=== PATIENT | male | born 1950 | race Caucasian/White ===

== ENCOUNTER 2025-04-03 13:43 | Inpatient (IN) | payer MEDICARE ==
[~2025-04-03] VITALS: Ht 195.6 cm; Wt 120.2 kg
[2025-04-03] MEDS: ONDANSETRON HCL INJ 2MG/ML 2ML 2 MG/ML VIAL IV STA (14:19)
[2025-04-03] MEDS: SODIUM CHLORIDE 0.9% 1000ML 1,000 ML IV STA (14:19)
[2025-04-03 14:23] LABS: BASOPHILS # (AUTO) 0.1 (0.0-0.1); EOSINOPHILS # (AUTO) 0.8 (0.0-0.4); EOSINOPHILS % 12.8 % (0.0-6.0); HEMATOCRIT 33.9 % (38.2-49.6); HEMOGLOBIN 11.6 g/dL (14.0-18.0); LYMPHOCYTES # (AUTO) 1.6 (1.0-3.2); LYMPHOCYTES % 27.4 % (18.0-39.1); MEAN CORPUSCULAR HEMOGLOBIN 29.7 pg (28-32); MEAN CORPUSCULAR HGB CONC 34.2 g/dL (31-35); MEAN CORPUSCULAR VOLUME 86.9 fL (81-99); MONOCYTES # (AUTO) 0.6 (0.2-0.8); MONOCYTES % 10.6 % (4.4-11.3); NEUTROPHILS # (AUTO) 2.8 (2.1-6.9); PLATELET COUNT 225 x10e3/uL (140-360); RED CELL DISTRIBUTION WIDTH 12.3 % (11.7-14.4); WHITE BLOOD COUNT 5.87 x10e3/uL (4.8-10.8)
[2025-04-03 14:29] LABS: INR 0.9
[2025-04-03 14:30] LABS: PARTIAL THROMBOPLASTIN TIME 32.6 seconds (23.8-35.5)
[2025-04-03 14:38] LABS: ALBUMIN 3.6 g/dL (3.5-5.0); ALBUMIN/GLOBULIN RATIO 1.3 (0.8-2.0); BILIRUBIN,TOTAL 0.9 mg/dL (0.2-1.2); CALCIUM 8.8 mg/dL (8.4-10.2); CREATININE, SERUM 0.64 mg/dL (0.72-1.25); MAGNESIUM 1.7 MG/DL (1.3-2.1); TOTAL PROTEIN 6.3 g/dL (6.5-8.1)
[2025-04-03 14:40] LABS: CORONAVIRUS COVID-19 AG NEGATIVE (NEGATIVE); INFLUENZA A AG NEGATIVE (NEGATIVE); INFLUENZA B AG NEGATIVE (NEGATIVE)
[2025-04-03 14:45] LABS: TROPONIN I 0.02 ng/mL (0-0.300)
[2025-04-03] MEDS ORDERED: ACETAMINOPHEN 325 MG TAB PO PRN (15:15)
[2025-04-03] MEDS ORDERED: ONDANSETRON HCL INJ 2MG/ML 2ML 2 MG/ML VIAL IV PRN (15:15)
[2025-04-03 15:27] LABS: BILIRUBIN,URINE NEGATIVE (NEGATIVE); CLARITY,URINE CLEAR (CLEAR); COLOR,URINE YELLOW (YELLOW); GLUCOSE, URINE NEGATIVE (NEGATIVE); KETONES,URINE NEGATIVE (NEGATIVE); LEUKOCYTE ESTERASE ,URINE NEGATIVE (NEGATIVE); NITRITE,URINE NEGATIVE (NEGATIVE); PH,URINE 6 (5 - 7); PROTEIN,URINE DIPSTICK NEGATIVE (NEGATIVE); URINE UROBILINOGEN 1 mg/dL (0.2 - 1)
[2025-04-03 15:43] LABS: AMORPHOUS SEDIMENT,URINE FEW; BACTERIA,URINE RARE /HPF; EPITHELIAL CELLS,URINE MODERATE /LPF; MUCUS,URINE MODERATE; RBC,URINE 0-5 /HPF (0-5)
[2025-04-03] MEDS ORDERED: BENZONATATE 100 MG CAP PO PRN (16:00)
[2025-04-03] MEDS ORDERED: ALBUTEROL/IPRATROPIUM 3 ML NEB NEB PRN (16:00)
[2025-04-03] MEDS ORDERED: DIPHENHYDRAMINE HCL 25 MG CAP PO PRN (16:00)
[2025-04-03] MEDS ORDERED: HYDRALAZINE HCL 20 MG/ML VIAL IV PRN (16:00)
[2025-04-03] MEDS ORDERED: SIMETHICONE 80 MG CHEW PO PRN (16:00)
[2025-04-03] MEDS ORDERED: POTASSIUM CHLORIDE 20 MEQ TAB CR PO PRN (16:00)
[2025-04-03] MEDS ORDERED: DEXTROSE 50% SYRINGE 50 ML IV PRN (16:00)
[2025-04-03] MEDS ORDERED: DOCUSATE SODIUM 100 MG CAP PO PRN (16:00)
[2025-04-03] MEDS ORDERED: LIDOCAINE 4% PATCH TP PRN (16:00)
[2025-04-03 16:29] VITALS: PULSE 56; RESP 21; TEMP 97.4
[2025-04-03 17:21] VITALS: BP 157/61; PULSE 53; RESP 20; TEMP 98.5; O2SAT 95
[2025-04-03] MEDS: ENOXAPARIN SOD INJ 40 MG/0.4 ML SYR SC SCH (17:22)
[2025-04-03] MEDS: AZITHROMYCIN 250 MG TAB PO SCH (17:22)
[2025-04-03] MEDS ORDERED: CLOBETASOL PROP15 GM (17:46)
[2025-04-03] MEDS ORDERED: EZETIMIBE10 MG PO (17:46)
[2025-04-03] MEDS ORDERED: ATORVASTATIN CA40 MG PO (17:46)
[2025-04-03] MEDS ORDERED: NIFEDIPINE ER30 M1 PO (17:46)
[2025-04-03] MEDS ORDERED: LIBTAYO350 MG/7 M (17:46)
[2025-04-03] MEDS ORDERED: [UNRECOGNIZED DRUG - OTHER] PO (17:46)
[2025-04-03] MEDS ORDERED: FLUTICASONE PRO16 GM (17:46)
[2025-04-03] MEDS ORDERED: TELMISARTAN80 MG PO (17:46)
[2025-04-03] MEDS ORDERED: BENZONATATE100 MG PO (17:46)
[2025-04-03 18:18] VITALS: BP 157/61; PULSE 53; RESP 18; TEMP 98.5; O2SAT 95
[2025-04-03 18:58] LABS: TROPONIN I 0.017 ng/mL (0-0.300)
[2025-04-03] MEDS: SODIUM CHLORIDE 0.9% 250ML 250 ML ONE (19:03)
[2025-04-03 19:35] VITALS: PULSE 58; RESP 16; O2SAT 94
[2025-04-03 20:00] VITALS: BP 139/54; PULSE 54; RESP 20; TEMP 97.3; O2SAT 94
[2025-04-03] MEDS: GUAIFENESIN/CODEINE 5 ML LIQD PO PRN (20:23)
[2025-04-03] MEDS: MELATONIN 5 MG TABLET PO PRN (20:23)
[2025-04-03] MEDS: SODIUM CHLORIDE 0.9% 1000ML 1,000 ML IV SCH (20:23)
[2025-04-04] VITALS (9 sets, daily range): BP systolic 139–184; BP diastolic 54–78; PULSE 53–81; RESP 16–21; TEMP 97.3–98.4; O2SAT 90–97
[2025-04-04 02:16] LABS: TROPONIN I 0.021 ng/mL (0-0.300)
[2025-04-04] MEDS: ACETAMINOPHEN 325 MG TAB PO PRN (05:17)
[2025-04-04 06:08] LABS: BASOPHILS # (AUTO) 0.1 (0.0-0.1); BASOPHILS % 0.8 % (0.0-1.0); EOSINOPHILS # (AUTO) 0.7 (0.0-0.4); EOSINOPHILS % 11.5 % (0.0-6.0); HEMATOCRIT 32.5 % (38.2-49.6); HEMOGLOBIN 11.1 g/dL (14.0-18.0); LYMPHOCYTES # (AUTO) 1.4 (1.0-3.2); LYMPHOCYTES % 22.4 % (18.0-39.1); MEAN CORPUSCULAR HGB CONC 34.2 g/dL (31-35); MEAN CORPUSCULAR VOLUME 87.8 fL (81-99); MONOCYTES # (AUTO) 0.7 (0.2-0.8); MONOCYTES % 11.2 % (4.4-11.3); NEUTROPHILS # (AUTO) 3.4 (2.1-6.9); NEUTROPHILS % 53.9 % (38.7-80.0); PLATELET COUNT 224 x10e3/uL (140-360); RED CELL DISTRIBUTION WIDTH 12.2 % (11.7-14.4); WHITE BLOOD COUNT 6.33 x10e3/uL (4.8-10.8)
[2025-04-04 06:28] LABS: ALBUMIN 3.3 g/dL (3.5-5.0); ALBUMIN/GLOBULIN RATIO 1.3 (0.8-2.0); ANION GAP 10.5 mmol/L (8-16); BILIRUBIN,TOTAL 0.7 mg/dL (0.2-1.2); CALCIUM 8.6 mg/dL (8.4-10.2); CREATININE, SERUM 0.68 mg/dL (0.72-1.25); POTASSIUM 4.5 mmol/L (3.5-5.1); TOTAL PROTEIN 5.9 g/dL (6.5-8.1)
[2025-04-04] MEDS: PANTOPRAZOLE SOD 40 MG TABEC PO SCH (08:24)
[2025-04-04] MEDS: NIFEDIPINE CR 30 MG TAB PO SCH (14:43)
[2025-04-04] MEDS: SODIUM CHLORIDE 0.9% 1000ML 1,000 ML IV SCH (14:43)
[2025-04-04] MEDS: LORATADINE 10 MG TAB PO SCH (14:53)
[2025-04-04] MEDS: PREDNISONE 20 MG TAB PO SCH (14:53)
[2025-04-04] MEDS: ALBUTEROL/IPRATROPIUM 3 ML NEB NEB SCH (16:54)
[2025-04-04] MEDS: FLUTICASONE PROPIONATE NASAL SPRAY NS SCH (17:31)
[2025-04-05] VITALS (10 sets, daily range): BP systolic 138–156; BP diastolic 51–67; PULSE 60–83; RESP 16–22; TEMP 97.5–98.5; O2SAT 92–98
[2025-04-05 05:54] LABS: BASOPHILS % 0.2 % (0.0-1.0); EOSINOPHILS % 0.2 % (0.0-6.0); HEMATOCRIT 32.7 % (38.2-49.6); HEMOGLOBIN 11.3 g/dL (14.0-18.0); LYMPHOCYTES % 23.5 % (18.0-39.1); MEAN CORPUSCULAR HEMOGLOBIN 30.1 pg (28-32); MEAN CORPUSCULAR HGB CONC 34.6 g/dL (31-35); MEAN CORPUSCULAR VOLUME 87.2 fL (81-99); MONOCYTES # (AUTO) 0.5 (0.2-0.8); MONOCYTES % 10.4 % (4.4-11.3); NEUTROPHILS # (AUTO) 2.9 (2.1-6.9); NEUTROPHILS % 65.5 % (38.7-80.0); PLATELET COUNT 245 x10e3/uL (140-360); RED BLOOD COUNT 3.75 x10e6/uL (4.3-5.7); WHITE BLOOD COUNT 4.42 x10e3/uL (4.8-10.8)
[2025-04-05 06:42] LABS: ANION GAP 13.1 mmol/L (8-16); CALCIUM 8.6 mg/dL (8.4-10.2); CREATININE, SERUM 0.63 mg/dL (0.72-1.25); POTASSIUM 4.1 mmol/L (3.5-5.1)
[2025-04-05] MEDS: EZETIMIBE 10 MG TAB PO SCH (09:06)
[2025-04-05] MEDS: ATORVASTATIN 40 MG TAB PO SCH (09:07)
[2025-04-05] MEDS: SODIUM CHLORIDE 1 GM TAB PO SCH (15:36)
[2025-04-06] VITALS (9 sets, daily range): BP systolic 145–177; BP diastolic 60–72; PULSE 50–71; RESP 18–19; TEMP 98.1–98.8; O2SAT 94–100
[2025-04-06 05:27] LABS: HEMATOCRIT 31.2 % (38.2-49.6); HEMOGLOBIN 10.4 g/dL (14.0-18.0)
[2025-04-06 05:59] LABS: ANION GAP 15.9 mmol/L (8-16); CREATININE, SERUM 0.69 mg/dL (0.72-1.25); POTASSIUM 3.9 mmol/L (3.5-5.1)
[2025-04-06 13:43] LABS: OSMOLALITY,SERUM OSMOMETER 255 mOsmol/kg (280-301)
[2025-04-06 15:46] LABS: OSMOLALITY,URINE 556 mOsmol/kg (.)
== END 2025-04-06 15:30 | disposition home or self-care (01) | DRG 644 ==
LOC: ER 13:49 → ERHOLD 15:11 → MED/SURG 16:55 → OBSVTOIN 04-04 14:42
PROVIDERS: ADMIT Internal Medicine; ATTEND Internal Medicine
DX: E22.2 Syndrome of inappropriate secretion of antidiuretic hormone (principal); D84.821 Immunodeficiency due to drugs; N17.9 Acute kidney failure, unspecified; E86.0 Dehydration; C44.320 Squamous cell carcinoma of skin of unspecified parts of face; I25.10 Atherosclerotic heart disease of native coronary artery without angina pectoris; I10 Essential (primary) hypertension; J06.9 Acute upper respiratory infection, unspecified; E78.5 Hyperlipidemia, unspecified; R53.81 Other malaise; Z11.52 Encounter for screening for COVID-19; Z79.69 Long term (current) use of other immunomodulators and immunosuppressants; Z95.1 Presence of aortocoronary bypass graft
CPT/HCPCS: 36415; 71045; 80048; 80053; 81001; 82550; 83735; 83880; 83930; 83935; 84295; 84300; 84443; 84484; 84550; 85014; 85018; 85025; 85610; 85730; 87040; 93005; 94640; 94799; 99252; 99284; G0378; J0696; J1650; J2405; J2470; J7030; J7050; J7512